=== PATIENT | female | born 1950 | race Two or more races ===

== ENCOUNTER → 2024-07-08 | Outpatient (CLI) | payer MEDICAID, SELFPAY ==
--- NOTE | 2024-07-08 11:30 | XR_ITS ---
Examination: Breast ultrasound, unilateral, left complete Date and time of exam: July 08, 2024 1152 hours INDICATIONS: Bilateral breast sonography December 29, 2023 skin thickening throughout the entire left breast, personal history left breast cancer, family history, sister breast cancer Technique: Real-time scales scale ultrasonographic imaging performed left breast including all 4 quadrants as well as nipple retroareolar and axillary region. Findings: No cystic or solid mass Unchanged skin thickening left breast IMPRESSION: Unchanged skin thickening left breast
== END | disposition home or self-care (01) ==
PROVIDERS: PCP Physician Assistant; Referring Provider Nurse Practitioner Family; Visit Provider Nurse Practitioner Family
DX: R23.4 Changes in skin texture (principal); N64.59 Other signs and symptoms in breast; C50.212 Malignant neoplasm of upper-inner quadrant of left female breast
CPT/HCPCS: 76641

== ENCOUNTER 2024-07-10 10:06 | Outpatient (RCR) | payer MEDICAID, SELFPAY ==
[2024-06-26 16:30] LABS: Basophils % (Auto) 0 % (0-2.5); Eosinophils # (Auto) 0.1 Thou/mm3 (0.0-0.5); Eosinophils % (Auto) 2 % (0-10); Hematocrit 43.5 % (36.0-46.0); Hemoglobin 14.4 g/dL (12.0-16.0); Immature Granulocytes % (Auto) 0 % (0-0); Immature Granulocytes Auto 0.02 Thou/mm3 (0.00-0.00); Lymphocytes # (Auto) 1.2 Thou/mm3 (1.0-4.8); Lymphocytes % (Auto) 26 % (10-50); Mean Corpuscular HGB Conc 33.1 g/dl (31.0-37.0); Mean Corpuscular Hemoglobin 30.3 pg (25.0-35.0); Mean Corpuscular Volume 91 fL (80-100); Monocytes # (Auto) 0.4 Thou/mm3 (0.0-0.8); Monocytes % (Auto) 9 % (0-12); Neutrophils % (Auto) 63 % (37-80); Nucleated Red Blood Cell % 0 /100 WBC (0); Platelet Count 141 Thou/mm3 (140-440); RDW Standard Deviation 43.8 fL (36.4-46.3); Red Blood Count 4.76 Miln/mm3 (4.00-5.20); White Blood Count 4.7 Thou/mm3 (3.6-11.0)
[2024-06-26 17:01] LABS: Alanine Aminotransferase 23 U/L (10-49); Albumin, Serum 4.1 gm/dL (3.4-4.8); Albumin/Globulin Ratio 1.3 (1.2-2.2); Alkaline Phosphatase 102 U/L (46-116); Anion Gap 5 (7-16); Aspartate Amino Transferase 18 U/L (0-34); BUN/Creatinine Ratio 32 Ratio (12-20); Bilirubin,Total 0.6 mg/dL (0.3-1.2); Blood Urea Nitrogen 19 mg/dL (9-23); Calcium 9.2 mg/dL (8.3-10.6); Calcium (Corrected) 9.2 mg/dL (8.5-10.1); Carbon Dioxide 27.4 mMol/L (20.0-31.0); Chloride 105 mMol/L (98-107); Creatinine (Component) 0.6 mg/dL (0.6-1.3); Globulin 3.1 gm/dL (2.3-3.5); Glucose 105 mg/dL (74-106); Osmolality,Calculated 276 (275-295); Potassium 3.9 mMol/L (3.4-5.1); Sodium 137 mMol/L (136-145); Total Protein 7.2 gm/dL (5.7-8.2); eGFR > 60 See Note
[2024-06-26 17:17] LABS: CA 15-3 5.3 U/mL (<32.4); Carcinoembryonic Antigen 2.2 ng/mL (0.0-5.0)
== END 2024-07-13 23:59 | disposition home or self-care (01) ==
LOC: SCTC 10:06
PROVIDERS: PCP Physician Assistant; Referring Provider Internal Medicine Hematology & Oncology; Visit Provider Nurse Practitioner Family
DX: C50.212 Malignant neoplasm of upper-inner quadrant of left female breast (principal); Z17.1 Estrogen receptor negative status [ER-]; Z17.22 Progesterone receptor negative status; Z17.32 Human epidermal growth factor receptor 2 negative status; I10 Essential (primary) hypertension; J44.9 Chronic obstructive pulmonary disease, unspecified
CPT/HCPCS: 36591; 80053; 82378; 85025; 86300; 99212; A4216; J1642; G0463

== ENCOUNTER → 2024-11-11 | Outpatient (CLI) | payer MEDICAID, SELFPAY ==
--- NOTE | 2024-11-11 09:30 | XR_ITS ---
Examination: Screening digital mammography, bilateral Computer aided detection 3-D breast Tomosynthesis, bilateral Date and time of exam: November 11, 2024 0929 hours Compared to mammograms dating to 04/29/2019 Indication: Screening Technique: Nonmagnified MLO, CC views of the breasts to been obtained, reconstructed from 3-D Tomosynthesis images. R2 computer aided detection program utilized for evaluation of suspicious masses and/or abnormal calcifications. 3-D Tomosynthesis images obtained. Findings: The breasts are heterogeneously dense, which may obscure small masses Posttreatment changes left breast are stable Benign calcifications No interval suspicious masses Impression: BI-RADS category II: Benign Findings. Recommend 1 year follow-up mammogram.
== END | disposition home or self-care (01) ==
PROVIDERS: PCP Physician Assistant; Referring Provider Nurse Practitioner Family; Visit Provider Nurse Practitioner Family
DX: Z12.31 Encounter for screening mammogram for malignant neoplasm of breast (principal); R92.323 Mammographic fibroglandular density, bilateral breasts; R92.1 Mammographic calcification found on diagnostic imaging of breast; C50.212 Malignant neoplasm of upper-inner quadrant of left female breast
CPT/HCPCS: 77063; 77067

== ENCOUNTER 2024-12-19 13:19 | Outpatient (RCR) | payer MEDICAID, SELFPAY ==
--- NOTE | 2024-12-22 22:04 | CTCFLWUP_ITS ---
Patient: CHRISTINA HART : 1950 Page 3 of 4 FOLLOW UP NOTE DATE OF SERVICE: 12/22/2024 NAME: CHRISTINA HART ACCOUNT: [id number] : 1950 AGE: 74 INTERVAL HISTORY: Subjective: Chief Complaint Difficulty sleeping, only getting 3-4 hours of sleep per night History of Present Illness Froy Mantilla presents with multiple concerns, including hypertension, sleep disturbances, and constipation. The patient reports difficulty sleeping at night, managing only 3-4 hours of sleep. She clarifies that her sleep issues are not related to breathing problems, as she has oxygen at home and can sleep well with it. The patient's last scan in 2023 revealed constipation, but she reports improvement in her bowel movements. Regarding her sleep disturbances, the patient denies any daytime napping and does not mention any specific aggravating factors. She reports no associated symptoms or impact on daily functioning. The duration and severity of her sleep issues are not specified. The patient's constipation has improved since her last scan in 2023. She is currently taking lactulose every night to manage her bowel movements. No specific details about the frequency or consistency of her stools are provided. The patient's overall health status appears stable, with good blood work, cancer markers, and mammogram results. However, she is noted to have high blood pressure, which requires follow-up with her primary care physician. Medical History - Hypertension - Sleep disorder - Constipation Medications and Supplements - Lactulose 30 ml by mouth nightly - Warmed for 30 seconds in microwave before taking - Melatonin - Taken at night for sleep - Oxygen - Used at home for sleep Social History - Diet: Patient advised to reduce intake of rice, tortillas, and red meat; focus on vegetables and chicken; increase water consumption - Exercise: Recommended to exercise during the day - Sleep: Reports sleeping only 3-4 hours per night; advised to avoid daytime naps and TV at night - Substance Use: Advised to keep phone out of bedroom Review of Systems General: Positive for insomnia. Respiratory: Negative for breathing issues during sleep. Gastrointestinal: Positive for constipation, improved with treatment. Psychiatric: Positive for sleep disturbances. Objective: Laboratory, Imaging, and Diagnostic Test Results - Blood work: Normal (no specific values provided) - Cancer markers: Normal (no specific values provided) - Mammogram: Normal (no specific details provided) - Scan (2023): Showed constipation ONCOLOGY HISTORY: INTERVAL HISTORY: Left breast ultrasound done on 07/10/2024, showed unchanged skin thickening left breast, no cystic or solid mass. CT of the chest showed no new pulmonary nodules, 03/26/2024. CEA is 2.2, CA 15-3 is 5.3, 06/26/2024. Patient denies any other concerns or complaints. DIAGNOSIS: Stage IIIa (pT2, pNa, cM0) ER negative, MT negative, HER-2/wilfrido overexpressed invasive ductal carcinoma of left breast (07/31/2017). 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 Right lobe liver lesion CT-guided biopsy nondiagnostic (11/13/2017) CT-guided biopsy of the right lobe liver lesion again nondiagnostic (10/15/2020) CT-guided biopsy of the right lobe liver lesion (10/07/2021) negative for malignancy. CT scan done on 03/23/2023 which showed a 25 x 28 mm hypermetabolic lesion in the cervix. A transabdominal and transvaginal pelvic ultrasonography was requested. Patient refused transvaginal ultrasound, refused biopsy by [employer]COL[employer]Y SOCIAL WORK. 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 CT of chest showed no new pulmonary nodules hypertension. History of COPD, uses oxygen as needed. DATE OF DIAGNOSIS: 05/10/2017 STAGE/TNM: T2 N0 TREATMENT HISTORY: Care?Plan Start?Date Cycle Day Intent DOCEtaxel?75,?CARBOplatin?AUC?6,?Trasutzumab?6?(8?Load) 11/30/2017 21 Curative?(adjuvant) Herceptin?6mg/kg;?Perjeta?420mg 11/30/2017 21 Curative?(adjuvant) DOCETAXEL,?HERCEPTIN,?PERJETA,?CARBO 11/30/2017 21 Curative?(adjuvant) Trastuzumab?6?mg/kg? To?Finish?the?Year 07/17/2018 21 Curative?(adjuvant) HISTORY OF PRESENT ILLNESS: OTHER MEDICAL HISTORY/CONDITIONS: Abdominal surgery 30 years ago in [place] Hypertension Chronic constipation COPD, uses oxygen as needed FAMILY HISTORY: SOCIAL HISTORY: ONCOLOGY SOCIAL WORK HISTORY: MEDICATIONS: 1. carvedilol - 3.125 mg 1 tab Twice a Day 2. lactulose - 20 gram/30 mL 30 mL Daily 3. Lasix - 20 mg 1 tab Daily 4. melatonin - 5 mg 1 tab daily at betime as needed for sleep 5. valACYclovir - 500 mg 1 tab Daily Medications Last Reconciled by Maame Yuen RN on 12/19/2024 ALLERGIES: No Known Drug Allergies REVIEW OF SYSTEMS: A complete 14-point review of systems was performed and is negative except as noted in interval history. PHYSICAL EXAMINATION: VITAL SIGNS: ECOG Performance Status: 0 - Asymptomatic and fully active GENERAL APPEARANCE: Appears well, in no apparent distress, appropriately interactive. HEENT: Normocephalic, normal conjunctiva, normal hearing, lips without lesions, neck normal range of motion. CARDIOVASCULAR: Normal heart sounds PULMONARY: Normal respiratory effort, no respiratory distress or use of accessory muscles, speaking in full sentences, no tachypnea, coarse lung sounds EXTREMITIES: No pedal edema or cyanosis. SKIN: Normal skin appearance. NEUROLOGIC: Alert and ORIENTED x4. PSHYCHIATRIC: Appropriate affect, mood normal, behavior normal, intact thought and speech. LABORATORY DATA: I have personally reviewed and interpreted each of the patient?s relevant lab tests, abnormal findings are below: Date 06/26/23 06/26/24 ??WHITE?BLOOD?COUNT?(Thou/mm3) 5.6 4.7 ??RED?BLOOD?COUNT?(Miln/mm3) 4.46 4.76 ??HEMOGLOBIN?(gm/dl) 12.6 14.4 ??HEMATOCRIT?(%) 39.5 43.5 ??PLATELET?COUNT?(Thou/mm3) 167 141 ??NEUTROPHILS?%,?AUTO?(%) 66 63 ??LYMPH?%,?AUTO?(%) 24 26 ??NEUTROPHILS,?AUTO?(Thou/mm3) 3.7 3.0 ??GLUCOSE,RANDOM?(mg/dL) ? 105 ??BLOOD?UREA?NITROGEN?(mg/dL) ? 19 ??CREATININE?(mg/dL) ? 0.60 ??SODIUM?(mmol/L) ? 137 ??POTASSIUM?(mmol/L) ? 3.9 ??CHLORIDE?(mmol/L) ? 105 ??CrCl?(CandG)?(ml/min) ? 86.92 ??AST/SGOT?(Unit/L) ? 18 ??ALT/SGPT?(Unit/L) ? 23 ??ALKALINE?PHOSPHATASE?(Unit/L) ? 102 ??BILIRUBIN,?TOTAL?(mg/dL) ? 0.6 ??PROTEIN?TOTAL?(gm/dl) ? 7.2 ??ALBUMIN,?SERUM?(gm/dl) ? 4.1 ??GLOBULIN?(gm/dl) ? 3.1 ??ALBUMIN/GLOBULIN?RATIO ? 1.3 ??CALCIUM,?SERUM?(mg/dL) ? 9.2 ??CALCIUM?SERUM?(CORRECTED)?(mg/dL) ? 9.2 ??CEA?(O*)?(ng/ml) ? 2.2 ASSESSMENT/PLAN: 1. Stage IIIa (pT2, pNa, cM0) ER negative, MT negative, HER-2/wilfrido overexpressed invasive ductal carcinoma of left breast (07/31/2017). 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 Right lobe liver lesion CT-guided biopsy nondiagnostic (11/13/2017) CT-guided biopsy of the right lobe liver lesion again nondiagnostic (10/15/2020) CT-guided biopsy of the right lobe liver lesion (10/07/2021) negative for malignancy. CT scan done on 03/23/2023 which showed a 25 x 28 mm hypermetabolic lesion in the cervix. A transabdominal and transvaginal pelvic ultrasonography was requested. Patient refused transvaginal ultrasound, refused biopsy by [employer]COLOGY SOCIAL WORK. Patient following up with director special education, Ernesto Low. CT of chest showed no new pulmonary nodules, 03/26/2024 06/26/2024: CEA 2.2, CA 15-3: 5.3. Assessment and Plan: Froy Mantilla presents with hypertension, insomnia, and constipation, with a history of cancer and oxygen use at home. Hypertension Assessment: Patient's blood pressure is elevated. A follow-up with the primary care physician is necessary for further evaluation and management. Plan: - Follow up with primary care physician for physical examination on December 28, 2024 - Address hypertension management during the upcoming appointment Insomnia Assessment: Patient reports difficulty sleeping, getting only 3-4 hours of sleep per night. The insomnia is not related to breathing issues, as the patient has oxygen at home and can sleep well with it. Plan: - Avoid daytime naps - Engage in exercise during the day - Drink warm milk before bed - Avoid TV at night - Take melatonin at night - Keep phone out of the bedroom Constipation Assessment: Patient's last scan in 2023 showed constipation. The patient reports improvement in bowel movements. Plan: - Continue lactulose 30 mL PO nightly, warmed for 30 seconds in the microwave - Maintain lactulose regimen even if liquid stools occur, to clear old stools Obesity Assessment: Patient's weight is a concern, necessitating lifestyle modifications for weight loss. Plan: - Reduce caloric intake - Avoid rice, tortillas, and red meat - Focus on vegetables and chicken in diet - Increase water intake Cancer surveillance Assessment: Patient has a history of cancer. Recent blood work, cancer markers, and mammogram results are reported as good. Plan: - Continue routine cancer surveillance as per oncology protocolORDERS: Order # Description RETURN TO CLINIC: BILLING AND COMPLIANCE: I reviewed external records from providers outside my specialty as summarized above. I spent a total of 50 minutes on this patient?s care on the day of their visit excluding time spent related to any billed procedures. This time includes time spent with the patient as well as time spent documenting in the medical record, reviewing patients records and tests, obtaining history, placing orders, communicating with other healthcare professionals, counseling the patient, family or caregiver, and/or care coordination for the diagnoses above. Electronically Signed by: Javier Alexander MD T: 10:01 PM CC: Rafael?Vincent?, Rg?Donnie? PCP: Derik Watts Referring: Derik Watts This document was completed utilizing speech recognition software. Grammatical errors, random word insertions, pronoun errors, and incomplete sentences are an occasional consequence of this system due to software limitations, ambient noise, and hardware issues. Any formal questions or concerns about the content, text or information contained within the body of this dictation should be directly addressed to the provider for clarification.
== END 2025-01-11 23:59 | disposition home or self-care (01) ==
LOC: SCTC 13:19
PROVIDERS: PCP Physician Assistant; Referring Provider Physician Assistant; Visit Provider Internal Medicine Hematology & Oncology
DX: G47.00 Insomnia, unspecified (principal); I10 Essential (primary) hypertension; K59.00 Constipation, unspecified; E66.9 Obesity, unspecified; Z85.3 Personal history of malignant neoplasm of breast
CPT/HCPCS: 99213; G0463

== ENCOUNTER 2025-03-26 15:43 | Outpatient (RCR) | payer MEDICAID, SELFPAY ==
[2025-03-25 15:34] LABS: Basophils # (Auto) 0.0 Thou/mm3 (0.0-0.2); Basophils % (Auto) 0 % (0-2.5); Eosinophils # (Auto) 0.1 Thou/mm3 (0.0-0.5); Eosinophils % (Auto) 2 % (0-10); Hematocrit 39.5 % (36.0-46.0); Hemoglobin 13.0 g/dL (12.0-16.0); Immature Granulocytes Auto 0.01 Thou/mm3 (0.00-0.00); Lymphocytes # (Auto) 1.1 Thou/mm3 (1.0-4.8); Lymphocytes % (Auto) 22 % (10-50); Mean Corpuscular HGB Conc 32.9 g/dl (31.0-37.0); Mean Corpuscular Hemoglobin 30.8 pg (25.0-35.0); Mean Corpuscular Volume 94 fL (80-100); Monocytes # (Auto) 0.4 Thou/mm3 (0.0-0.8); Monocytes % (Auto) 9 % (0-12); Neutrophils # (Auto) 3.1 Thou/mm3 (1.8-7.7); Neutrophils % (Auto) 65 % (37-80); Nucleated Red Blood Cell # 0.00 Thou/mm3 (0.00-0.00); Nucleated Red Blood Cell % 0 /100 WBC (0); Platelet Count 143 Thou/mm3 (140-440); RDW Standard Deviation 45.0 fL (36.4-46.3); Red Blood Count 4.22 Miln/mm3 (4.00-5.20); White Blood Count 4.7 Thou/mm3 (3.6-11.0)
[2025-03-25 15:50] LABS: Alanine Aminotransferase 21 U/L (10-49); Albumin, Serum 3.9 gm/dL (3.4-4.8); Albumin/Globulin Ratio 1.3 (1.2-2.2); Alkaline Phosphatase 86 U/L (46-116); Anion Gap 8 (7-16); Aspartate Amino Transferase 26 U/L (0-34); BUN/Creatinine Ratio 26 Ratio (12-20); Bilirubin,Total 0.7 mg/dL (0.3-1.2); Blood Urea Nitrogen 18 mg/dL (9-23); Calcium 9.3 mg/dL (8.3-10.6); Calcium (Corrected) 9.4 mg/dL (8.5-10.1); Carbon Dioxide 25.8 mMol/L (20.0-31.0); Chloride 106 mMol/L (98-107); Creatinine (Component) 0.7 mg/dL (0.6-1.3); Globulin 2.9 gm/dL (2.3-3.5); Glucose 95 mg/dL (74-106); Osmolality,Calculated 281 (275-295); Potassium 4.0 mMol/L (3.4-5.1); Sodium 140 mMol/L (136-145); Total Protein 6.8 gm/dL (5.7-8.2); eGFR > 60 See Note
[2025-03-25 16:07] LABS: CA 125 6.0 U/mL (<30.2)
--- NOTE | 2025-03-26 16:58 | CTCFLWUP_ITS ---
Patient: CHRISTINA HART : 1950 Page 3 of 6 FOLLOW UP NOTE DATE OF SERVICE: 03/26/2025 NAME: CHRISTINA HART ACCOUNT: [id number] : 1950 AGE: 74 INTERVAL HISTORY: Subjective: Chief Complaint Patient is complaining of severe constipation . patient is doing well . Froy Mantilla presents with multiple concerns, including hypertension, sleep disturbances, and constipation. The patient reports difficulty sleeping at night, managing only 3-4 hours of sleep. She clarifies that her sleep issues are not related to breathing problems, as she has oxygen at home and can sleep well with it. The patient's last scan in 2023 revealed constipation, but she reports improvement in her bowel movements. Regarding her sleep disturbances, the patient denies any daytime napping and does not mention any specific aggravating factors. She reports no associated symptoms or impact on daily functioning. The duration and severity of her sleep issues are not specified. The patient's overall health status appears stable, with good blood work, cancer markers, and mammogram results. However, she is noted to have high blood pressure, which requires follow-up with her primary care physician. Medical History - Hypertension - Sleep disorder - Constipation Medications and Supplements - Lactulose 30 ml by mouth nightly - Warmed for 30 seconds in microwave before taking - Melatonin - Taken at night for sleep - Oxygen - Used at home for sleep Social History - Diet: Patient advised to reduce intake of rice, tortillas, and red meat; focus on vegetables and chicken; increase water consumption - Exercise: Recommended to exercise during the day - Sleep: Reports sleeping only 3-4 hours per night; advised to avoid daytime naps and TV at night - Substance Use: Advised to keep phone out of bedroom Review of Systems General: Positive for insomnia. Respiratory: Negative for breathing issues during sleep. Gastrointestinal: Positive for constipation, improved with treatment. Psychiatric: Positive for sleep disturbances. Objective: Laboratory, Imaging, and Diagnostic Test Results - Blood work: Normal (no specific values provided) - Cancer markers: Normal (no specific values provided) - Mammogram: Normal (no specific details provided) - Scan (2023): Showed constipation ONCOLOGY HISTORY:?[facility] Hx? INTERVAL HISTORY: Left breast ultrasound done on 07/10/2024, showed unchanged skin thickening left breast, no cystic or solid mass. CT of the chest showed no new pulmonary nodules, 03/26/2024. CEA is 2.2, CA 15-3 is 5.3, 06/26/2024. Patient denies any other concerns or complaints. DIAGNOSIS: Stage IIIa (pT2, pNa, cM0) ER negative, UT negative, HER-2/wilfrido overexpressed invasive ductal carcinoma of left breast (07/31/2017). 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 Right lobe liver lesion CT-guided biopsy nondiagnostic (11/13/2017) CT-guided biopsy of the right lobe liver lesion again nondiagnostic (10/15/2020) CT-guided biopsy of the right lobe liver lesion (10/07/2021) negative for malignancy. CT scan done on 03/23/2023 which showed a 25 x 28 mm hypermetabolic lesion in the cervix. A transabdominal and transvaginal pelvic ultrasonography was requested. Patient refused transvaginal ultrasound, refused biopsy by [employer]. 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 CT of chest showed no new pulmonary nodules hypertension. History of COPD, uses oxygen as needed. DATE OF DIAGNOSIS: 05/10/2017 STAGE/TNM: T2 N0 TREATMENT HISTORY: Care?Plan Start?Date Cycle Day Intent DOCEtaxel?75,?CARBOplatin?AUC?6,?Trasutzumab?6?(8?Load) 11/30/2017 1 21 Curative?(adjuvant) Herceptin?6mg/kg;?Perjeta?420mg 11/30/2017 1 21 Curative?(adjuvant) DOCETAXEL,?HERCEPTIN,?PERJETA,?CARBO 11/30/2017 1 21 Curative?(adjuvant) Trastuzumab?6?mg/kg? To?Finish?the?Year 07/17/2018 1 21 Curative?(adjuvant) HISTORY OF PRESENT ILLNESS: OTHER MEDICAL HISTORY/CONDITIONS: Abdominal surgery 30 years ago in [place] Hypertension Chronic constipation COPD, uses oxygen as needed FAMILY HISTORY: ?[facility] Hx? SOCIAL HISTORY: [employer] HISTORY: MEDICATIONS: 1. carvedilol - 3.125 mg 1 tab Twice a Day 2. lactulose - 20 gram/30 mL 30 mL Daily 3. Lasix - 20 mg 1 tab Daily 4. magnesium citrate - 150 mL take 1 bottle at night time 5. melatonin - 5 mg 1 tab daily at betime as needed for sleep 6. valACYclovir - 500 mg 1 tab Daily?Palabra Meds? Medications Last Reconciled by Paulina Alexander MD on 03/26/2025 ALLERGIES: No Known Drug Allergies REVIEW OF SYSTEMS: A complete 14-point review of systems was performed and is negative except as noted in interval history. PHYSICAL EXAMINATION:?[facility] PE? VITAL SIGNS: Temperature?97.2, B/P?147/73, Oxygen?Saturation?93% Weight?198?lbs (Change?since?03/25/25:?0?lbs) PAIN: 0 - No pain ECOG Performance Status: 0 - Asymptomatic and fully active GENERAL APPEARANCE: Appears well, in no apparent distress, appropriately interactive. HEENT: Normocephalic, normal conjunctiva, normal hearing, lips without lesions, neck normal range of motion. CARDIOVASCULAR: Normal heart sounds PULMONARY: Normal respiratory effort, no respiratory distress or use of accessory muscles, speaking in full sentences, no tachypnea, coarse lung sounds EXTREMITIES: No pedal edema or cyanosis. SKIN: Normal skin appearance. NEUROLOGIC: Alert and ORIENTED x4. PSHYCHIATRIC: Appropriate affect, mood normal, behavior normal, intact thought and speech. LABORATORY DATA: I have personally reviewed and interpreted each of the patient?s relevant lab tests, abnormal findings are below: Date 06/26/24 03/25/25 ??WHITE?BLOOD?COUNT?(Thou/mm3) ? 4.7 ??RED?BLOOD?COUNT?(Miln/mm3) ? 4.22 ??HEMOGLOBIN?(gm/dl) ? 13.0 ??HEMATOCRIT?(%) ? 39.5 ??PLATELET?COUNT?(Thou/mm3) ? 143 ??NEUTROPHILS?%,?AUTO?(%) ? 65 ??LYMPH?%,?AUTO?(%) ? 22 ??NEUTROPHILS,?AUTO?(Thou/mm3) ? 3.1 ??GLUCOSE,RANDOM?(mg/dL) 105 95 ??BLOOD?UREA?NITROGEN?(mg/dL) 19 18 ??CREATININE?(mg/dL) 0.60 0.70 ??SODIUM?(mmol/L) 137 140 ??POTASSIUM?(mmol/L) 3.9 4.0 ??CHLORIDE?(mmol/L) 105 106 ??CrCl?(CandG)?(ml/min) 86.92 76.12 ??AST/SGOT?(Unit/L) 18 26 ??ALT/SGPT?(Unit/L) 23 21 ??ALKALINE?PHOSPHATASE?(Unit/L) 102 86 ??BILIRUBIN,?TOTAL?(mg/dL) 0.6 0.7 ??PROTEIN?TOTAL?(gm/dl) 7.2 6.8 ??ALBUMIN,?SERUM?(gm/dl) 4.1 3.9 ??GLOBULIN?(gm/dl) 3.1 2.9 ??ALBUMIN/GLOBULIN?RATIO 1.3 1.3 ??CALCIUM,?SERUM?(mg/dL) 9.2 9.3 ??CALCIUM?SERUM?(CORRECTED)?(mg/dL) 9.2 9.4 ??CA?125?(O*)?(Unit/mL) ? 6.0 ASSESSMENT/PLAN:?Kranthi Alexander Assessment/Plan? 1. Stage IIIa (pT2, pNa, cM0) ER negative, UT negative, HER-2/wilfrido overexpressed invasive ductal carcinoma of left breast (07/31/2017). 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 Right lobe liver lesion CT-guided biopsy nondiagnostic (11/13/2017) CT-guided biopsy of the right lobe liver lesion again nondiagnostic (10/15/2020) CT-guided biopsy of the right lobe liver lesion (10/07/2021) negative for malignancy. CT scan done on 03/23/2023 which showed a 25 x 28 mm hypermetabolic lesion in the cervix. A transabdominal and transvaginal pelvic ultrasonography was requested. Patient refused transvaginal ultrasound, refused biopsy by [employer]. 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 CT of chest showed no new pulmonary nodules, 03/26/2024 06/26/2024: CEA 2.2, CA 15-3: 5.3. Hypertension Assessment: Patient's blood pressure is elevated. A follow-up with the primary care physician is necessary for further evaluation and management. Plan: - Follow up with primary care physician for physical examination on December 28, 2024 - Address hypertension management during the upcoming appointment Insomnia Assessment: Patient reports difficulty sleeping, getting only 3-4 hours of sleep per night. The insomnia is not related to breathing issues, as the patient has oxygen at home and can sleep well with it. Plan: - Avoid daytime naps - Engage in exercise during the day - Drink warm milk before bed - Avoid TV at night - Take melatonin at night - Keep phone out of the bedroom Constipation Assessment: ordered enema as well mag citrate Obesity Assessment: Patient's weight is a concern, necessitating lifestyle modifications for weight loss. Plan: - Reduce caloric intake - Avoid rice, tortillas, and red meat - Focus on vegetables and chicken in diet - Increase water intake Cancer surveillance Assessment: Patient has a history of cancer. Recent blood work, cancer markers, and mammogram results are reported as good. Plan: - Continue routine cancer surveillance as per oncology protocolORDERS: Order # Description ORDERS: Order # Description [id number] Follow Up 4 Month [id number] Comprehensive Metabolic Panel - 12 + CBC with Auto Diff RETURN TO CLINIC: I reviewed the diagnosis, prognosis, and recommended treatment/procedure options with the patient (and/or their legal sales utility representative), including the potential benefits, risks, side effects and alternative therapies. We also discussed the option of no treatment and the possibility of clinical trial participation, if applicable. All questions were addressed, and they demonstrated understanding. They provided informed consent to proceed with the proposed plan of care. BILLING AND COMPLIANCE: I reviewed external records from providers outside my specialty as summarized above. I spent a total of 50 minutes on this patient?s care on the day of their visit excluding time spent related to any billed procedures. This time includes time spent with the patient as well as time spent documenting in the medical record, reviewing patients records and tests, obtaining history, placing orders, communicating with other healthcare professionals, counseling the patient, family or caregiver, and/or care coordination for the diagnoses above. Electronically Signed by: Javier Alexander MD T: 4:56 PM CC: Rafael?Vincent?, Rg?Donnie? PCP: Derik Watts Referring: Derik Watts This document was completed utilizing speech recognition software. Grammatical errors, random word insertions, pronoun errors, and incomplete sentences are an occasional consequence of this system due to software limitations, ambient noise, and hardware issues. Any formal questions or concerns about the content, text or information contained within the body of this dictation should be directly addressed to the provider for clarification.
== END 2025-04-13 23:59 | disposition home or self-care (01) ==
LOC: SCTC 15:43
PROVIDERS: PCP Physician Assistant; Referring Provider Physician Assistant; Visit Provider Internal Medicine Hematology & Oncology
DX: Z08 Encounter for follow-up examination after completed treatment for malignant neoplasm (principal); Z85.3 Personal history of malignant neoplasm of breast; K59.00 Constipation, unspecified; I10 Essential (primary) hypertension; G47.00 Insomnia, unspecified; E66.9 Obesity, unspecified; Z68.36 Body mass index [BMI] 36.0-36.9, adult
CPT/HCPCS: 36591; 80053; 85025; 86304; 99212; A4216; J1642; G0463

== ENCOUNTER → 2025-04-11 | Outpatient (CLI) | payer MEDICAID, SELFPAY ==
--- NOTE | 2025-04-11 13:08 | XR_ITS ---
Examination: Abdomen AP single view Technique: AP portable supine abdomen, single view Exam date and time: April 11, 2025 1343 hours INDICATIONS: Constipation beginning 5 years ago FINDINGS: Large amounts of stool throughout the entire colon No free air No obstruction IMPRESSION: Large amounts of stool throughout the entire colon
== END | disposition home or self-care (01) ==
LOC: CDIM 12:35
PROVIDERS: PCP Physician Assistant; Referring Provider Internal Medicine Hematology & Oncology; Visit Provider Internal Medicine Hematology & Oncology
DX: K59.00 Constipation, unspecified (principal)
CPT/HCPCS: 74018

== ENCOUNTER 2025-06-26 12:55 | Outpatient (RCR) | payer MEDICAID, SELFPAY ==
--- NOTE | 2025-06-29 19:25 | CTCFLWUP_ITS ---
Patient: CHRISTINA HART : 1950 Page 3 of 5 FOLLOW UP NOTE DATE OF SERVICE: 06/26/2025 NAME: CHRISTINA HART ACCOUNT: [id number] : 1950 AGE: 74 INTERVAL HISTORY: Subjective: Since last visit patient's constipation is better medical History - Hypertension - Sleep disorder - Constipation Medications and Supplements - Lactulose 30 ml by mouth nightly - Warmed for 30 seconds in microwave before taking - Melatonin - Taken at night for sleep - Oxygen - Used at home for sleep Social History - Diet: Patient advised to reduce intake of rice, tortillas, and red meat; focus on vegetables and chicken; increase water consumption - Exercise: Recommended to exercise during the day - Sleep: Reports sleeping only 3-4 hours per night; advised to avoid daytime naps and TV at night - Substance Use: Advised to keep phone out of bedroom Review of Systems General: Positive for insomnia. Respiratory: Negative for breathing issues during sleep. Gastrointestinal: Positive for constipation, improved with treatment. Psychiatric: Positive for sleep disturbances. Objective: Laboratory, Imaging, and Diagnostic Test Results - Blood work: Normal (no specific values provided) - Cancer markers: Normal (no specific values provided) - Mammogram: Normal (no specific details provided) - Scan (2023): Showed constipation ONCOLOGY HISTORY: INTERVAL HISTORY: Left breast ultrasound done on 07/10/2024, showed unchanged skin thickening left breast, no cystic or solid mass. CT of the chest showed no new pulmonary nodules, 03/26/2024. CEA is 2.2, CA 15-3 is 5.3, 06/26/2024. Patient denies any other concerns or complaints. 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 Right lobe liver lesion CT-guided biopsy nondiagnostic (11/13/2017) CT-guided biopsy of the right lobe liver lesion again nondiagnostic (10/15/2020) CT-guided biopsy of the right lobe liver lesion (10/07/2021) negative for malignancy. CT scan done on 03/23/2023 which showed a 25 x 28 mm hypermetabolic lesion in the cervix. A transabdominal and transvaginal pelvic ultrasonography was requested. Patient refused transvaginal ultrasound, refused biopsy by LABOR RELATIONS CONSULTANT. Patient following up with pan pusher. CT of chest showed no new pulmonary nodules hypertension. History of COPD, uses oxygen as needed. DATE OF DIAGNOSIS: 05/10/2017 STAGE/TNM: T2 N0 TREATMENT HISTORY: Care?Plan Start?Date Cycle Day Intent DOCEtaxel?75,?CARBOplatin?AUC?6,?Trasutzumab?6?(8?Load) 11/30/201709 03 Curative?(adjuvant) Herceptin?6mg/kg;?Perjeta?420mg 11/30/201709 03 Curative?(adjuvant) DOCETAXEL,?HERCEPTIN,?PERJETA,?CARBO 11/30/201709 03 Curative?(adjuvant) Trastuzumab?6?mg/kg? To?Finish?the?Year 07/17/201809 03 Curative?(adjuvant) HISTORY OF PRESENT ILLNESS: OTHER MEDICAL HISTORY/CONDITIONS: Abdominal surgery 30 years ago in [place] Hypertension Chronic constipation COPD, uses oxygen as needed FAMILY HISTORY: SOCIAL HISTORY: LABOR RELATIONS CONSULTANT HISTORY: MEDICATIONS: 1. carvedilol - 3.125 mg 1 tab Twice a Day 2. lactulose - 20 gram/30 mL 30 mL Daily 3. Lasix - 20 mg 1 tab Daily 4. magnesium citrate - 150 mL take 1 bottle at night time 5. melatonin - 5 mg 1 tab daily at betime as needed for sleep 6. valACYclovir - 500 mg 1 tab Daily Medications Last Reconciled by Paulina Alexander MD on 03/26/2025 ALLERGIES: No Known Drug Allergies REVIEW OF SYSTEMS: A complete 14-point review of systems was performed and is negative except as noted in interval history. PHYSICAL EXAMINATION: VITAL SIGNS: PAIN: 0 - No pain ECOG Performance Status: 0 - Asymptomatic and fully active GENERAL APPEARANCE: Appears well, in no apparent distress, appropriately interactive. HEENT: Normocephalic, normal conjunctiva, normal hearing, lips without lesions, neck normal range of motion. CARDIOVASCULAR: Normal heart sounds PULMONARY: Normal respiratory effort, no respiratory distress or use of accessory muscles, speaking in full sentences, no tachypnea, coarse lung sounds EXTREMITIES: No pedal edema or cyanosis. SKIN: Normal skin appearance. NEUROLOGIC: Alert and ORIENTED x4. PSHYCHIATRIC: Appropriate affect, mood normal, behavior normal, intact thought and speech. LABORATORY DATA: I have personally reviewed and interpreted each of the patient?s relevant lab tests, abnormal findings are below: Date 06/26/24 03/25/25 ??WHITE?BLOOD?COUNT?(Thou/mm3) ? 4.7 ??RED?BLOOD?COUNT?(Miln/mm3) ? 4.22 ??HEMOGLOBIN?(gm/dl) ? 13.0 ??HEMATOCRIT?(%) ? 39.5 ??PLATELET?COUNT?(Thou/mm3) ? 143 ??NEUTROPHILS?%,?AUTO?(%) ? 65 ??LYMPH?%,?AUTO?(%) ? 22 ??NEUTROPHILS,?AUTO?(Thou/mm3) ? 3.1 ??GLUCOSE,RANDOM?(mg/dL) 105 95 ??BLOOD?UREA?NITROGEN?(mg/dL) 19 18 ??CREATININE?(mg/dL) 0.60 0.70 ??SODIUM?(mmol/L) 137 140 ??POTASSIUM?(mmol/L) 3.9 4.0 ??CHLORIDE?(mmol/L) 105 106 ??CrCl?(CandG)?(ml/min) 86.92 76.12 ??AST/SGOT?(Unit/L) 18 26 ??ALT/SGPT?(Unit/L) 23 21 ??ALKALINE?PHOSPHATASE?(Unit/L) 102 86 ??BILIRUBIN,?TOTAL?(mg/dL) 0.6 0.7 ??PROTEIN?TOTAL?(gm/dl) 7.2 6.8 ??ALBUMIN,?SERUM?(gm/dl) 4.1 3.9 ??GLOBULIN?(gm/dl) 3.1 2.9 ??ALBUMIN/GLOBULIN?RATIO 1.3 1.3 ??CALCIUM,?SERUM?(mg/dL) 9.2 9.3 ??CALCIUM?SERUM?(CORRECTED)?(mg/dL) 9.2 9.4 ??CA?125?(O*)?(Unit/mL) ? 6.0 ASSESSMENT/PLAN: 1. Stage IIIa (pT2, pNa, cM0) ER negative, IL negative, HER-2/wilfrido overexpressed invasive ductal carcinoma of left breast (07/31/2017). 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 Right lobe liver lesion CT-guided biopsy nondiagnostic (11/13/2017) CT-guided biopsy of the right lobe liver lesion again nondiagnostic (10/15/2020) CT-guided biopsy of the right lobe liver lesion (10/07/2021) negative for malignancy. CT scan done on 03/23/2023 which showed a 25 x 28 mm hypermetabolic lesion in the cervix. A transabdominal and transvaginal pelvic ultrasonography was requested. Patient refused transvaginal ultrasound, refused biopsy by LABOR RELATIONS CONSULTANT. Patient following up with pan pusher, Ernesto Low. CT of chest showed no new pulmonary nodules, 03/26/2024 06/26/2024: CEA 2.2, CA 15-3: 5.3. Port removal ordered Hypertension Assessment: Patient's blood pressure is elevated. A follow-up with the primary care physician is necessary for further evaluation and management. Plan: - Follow up with primary care physician for physical examination on December 28, 2024 - Address hypertension management during the upcoming appointment Insomnia Assessment: Patient reports difficulty sleeping, getting only 3-4 hours of sleep per night. The insomnia is not related to breathing issues, as the patient has oxygen at home and can sleep well with it. Plan: - Avoid daytime naps - Engage in exercise during the day - Drink warm milk before bed - Avoid TV at night - Take melatonin at night - Keep phone out of the bedroom Constipation Assessment: ordered enema as well mag citrate Obesity Assessment: Patient's weight is a concern, necessitating lifestyle modifications for weight loss. Plan: - Reduce caloric intake - Avoid rice, tortillas, and red meat - Focus on vegetables and chicken in diet - Increase water intake Cancer surveillance Assessment: Patient has a history of cancer. Recent blood work, cancer markers, and mammogram results are reported as good. Plan: - Continue routine cancer surveillance as per oncology protocolORDERS: Order # Description ORDERS: Order # Description [id number] RETURN TO CLINIC: I reviewed the diagnosis, prognosis, and recommended treatment/procedure options with the patient (and/or their legal media sales representative), including the potential benefits, risks, side effects and alternative therapies. We also discussed the option of no treatment and the possibility of clinical trial participation, if applicable. All questions were addressed, and they demonstrated understanding. They provided informed consent to proceed with the proposed plan of care. BILLING AND COMPLIANCE: I reviewed external records from providers outside my specialty as summarized above. I spent a total of 50 minutes on this patient?s care on the day of their visit excluding time spent related to any billed procedures. This time includes time spent with the patient as well as time spent documenting in the medical record, reviewing patients records and tests, obtaining history, placing orders, communicating with other healthcare professionals, counseling the patient, family or caregiver, and/or care coordination for the diagnoses above. Electronically Signed by: Javier Alexander MD T: 7:23 PM CC: Rafael?Vincent?, Rg?Donnie? PCP: Derik Watts Referring: Derik Watts This document was completed utilizing speech recognition software. Grammatical errors, random word insertions, pronoun errors, and incomplete sentences are an occasional consequence of this system due to software limitations, ambient noise, and hardware issues. Any formal questions or concerns about the content, text or information contained within the body of this dictation should be directly addressed to the provider for clarification.
== END 2025-07-13 23:59 | disposition home or self-care (01) ==
LOC: SCTC 12:55
PROVIDERS: PCP Physician Assistant; Referring Provider Physician Assistant; Visit Provider Internal Medicine Hematology & Oncology
DX: Z08 Encounter for follow-up examination after completed treatment for malignant neoplasm (principal); Z85.3 Personal history of malignant neoplasm of breast; I10 Essential (primary) hypertension; G47.00 Insomnia, unspecified; K59.00 Constipation, unspecified; E66.9 Obesity, unspecified; Z68.36 Body mass index [BMI] 36.0-36.9, adult; J44.9 Chronic obstructive pulmonary disease, unspecified
CPT/HCPCS: 99212; G0463

== ENCOUNTER 2025-07-29 09:03 | Outpatient (AMB) | payer MEDICAID, SELFPAY ==
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
[2025-07-29 09:25] VITALS: BP 123/67; PULSE 89; RESP 16; TEMP 36.5; O2SAT 96; BMI 36.1
== END 2025-07-29 10:07 | disposition home or self-care (01) ==
LOC: HODSOBC 09:03
PROVIDERS: Supervising Provider Obstetrics & Gynecology; Visit Provider Obstetrics & Gynecology
DX: N85.8 Other specified noninflammatory disorders of uterus (principal); J44.1 Chronic obstructive pulmonary disease with (acute) exacerbation; F17.210 Nicotine dependence, cigarettes, uncomplicated; I10 Essential (primary) hypertension; Z85.3 Personal history of malignant neoplasm of breast; Z90.710 Acquired absence of both cervix and uterus; Z71.6 Tobacco abuse counseling; Z99.81 Dependence on supplemental oxygen; Z79.01 Long term (current) use of anticoagulants; Z79.899 Other long term (current) drug therapy
CPT/HCPCS: 99214; G0463